=== PATIENT | male | born 1985 | race Two or more races ===

== ENCOUNTER 2023-03-26 11:53 | Emergency (ER) | payer OTHER ==
[~2023-03-26] VITALS: Ht 172.7 cm; Wt 80.7 kg
[2023-03-26] MEDS ORDERED: CABENUVA 400 MG-4 ML IM (12:04)
== END 2023-03-26 16:45 | disposition home or self-care (01) ==
LOC: ER 11:53
DX: S70.01XA Contusion of right hip, initial encounter (principal); S50.01XA Contusion of right elbow, initial encounter; V19.9XXA Pedal cyclist (driver) (passenger) injured in unspecified traffic accident, initial encounter; Y93.9 Activity, unspecified; Y92.9 Unspecified place or not applicable; Y99.9 Unspecified external cause status